=== PATIENT | male | born 1970 | race Caucasian/White ===

== ENCOUNTER 2024-09-03 14:12 | Emergency (ER) | payer MEDICAID, SELFPAY ==
[2024-09-03] VITALS (7 sets, daily range): BP systolic 116–169; BP diastolic 65–108; PULSE 63–102; RESP 14–30; TEMP 36.7–36.9; O2SAT 93–98; BMI 29.0
--- NOTE | 2024-09-03 14:19 | PC.NURSE ---
dr villalpando at bedside
--- NOTE | 2024-09-03 14:23 | XR_ITS ---
PROCEDURE INFORMATION: Exam: XR Chest Exam date and time: 09/03/2024 2:34 PM Age: 53 years old Clinical indication: Cough and shortness of breath; Additional info: Productive cough, malaise TECHNIQUE: Imaging protocol: Radiologic exam of the chest. Views: 1 view. COMPARISON: No relevant prior studies available. FINDINGS: Tubes, catheters and devices: None. Lungs: The lungs appear clear. Pleural spaces: No pleural effusion. No pneumothorax. Heart/Mediastinum: Mediastinum and taylor appear unremarkable. Bones/joints: Mild generalized bony degenerative changes. Bony structures appear otherwise unremarkable. IMPRESSION: No evidence for acute abnormality identified in the chest.
--- NOTE | 2024-09-03 14:25 | ECG_ITS ---
APPROVED REPORT Exam: Resting ECG HR:82 bpm ECG Measurements Heart Rate 82 AXES PA 143 P 68 QRSd 92 QRS 18 QT 337 T 43 QTc 376 Conclusion Sinus rhythm Electronically signed by : TENNILLE MUÑOZ, 09/04/2024 07:18:40
--- NOTE | 2024-09-03 14:30 | [facility].EDGENADL ---
Discharge Plan Disposition Patient Disposition: Home, Self-Care Condition: Good Referrals Follow up/Referrals: Provider,Len, [Primary Care Provider] - See instructions Activity Restrictions/Add. Instructions Additional Instructions/Restrictions: You were evaluated in the emergency department today. Please make sure you stay hydrated. Follow-up with a primary care provider over the next 3 days for reassessment of labs. Return to the emergency department for new or worsening symptoms. Clinical Impressions Clinical Impression: Dehydration, Anxiety, Hypercalcemia, Hyperkalemia, Hyponatremia, Upper respiratory infection, viral Stand Alone Forms Stand Alone Forms: Work/School Release Instructions Patient Instructions: DI for Dehydration -- Adult, DI for Hypercalcemia, DI for Hyperkalemia Print Language Print Language: Polish Discharge ED Provider: Feliberto Muller General Adult HPI <Feliberto Muller MD - Last Filed: 09/03/24 15:11> General Chief complaint: Upper Respiratory Infection Stated complaint: cough congestion poss. anxiety w/sweating Time Seen by Provider: 09/03/24 14:17 Mode of Arrival: Ambulatory Source of Information: Patient Limitations: No Limitations Description of Symptoms (Recalled from ER Triage Doc. by RN): pt c/o cough x3days and anxiety History of Present Illness HPI narrative: Please note that above description of symptoms, in this electronic medical record under categorization of recalled from ER triage doctor by RN are reflective of an initial nursing assessment, however, is not reflective of my full history and physical exam that was personally taken and clarified. Consequentially, this preceding description of symptoms, which may include the patient's categorized chief complaint in the EMR, do not reflect my personal clinical impression, and the ultimate description of history of present illness and patient stated complaints should be deferred to this section of the note. Unless stated otherwise or congruent with this section of the note, additional signs, symptoms, or incongruence should be interpreted as inaccurate with my clinical impression. Related Data Allergies Allergy/AdvReac Type Severity Reaction Status Date / Time No Known Allergies Allergy Verified 09/03/24 14:31 PFSH <Feliberto Muller MD - Last Filed: 09/03/24 15:11> PFS Disclaimer: The information contained in this section may have been updated after the patient was seen, as this information can be updated by other users. Social History (Updated 09/03/24 @ 15:11 by Feliberto Muller MD) Smoking Status: Never smoker alcohol intake: never current occupational status: employed Travel in the last 8 weeks: None Have you lived/traveled outside [place] in past 30 days?: No Contact w/someone who lives/traveled outside [place] past 30 days?: No Exposure to someone with infectious disease in past 14 days?: No Do you have a fever (greater than 100.4 F or 38 C)?: No Have you tested positive for COVID-19: No Exposed to someone with COVID-19 in past 14 days?: No Do you have a sore throat?: No Do you have a cough?: Yes Do you have any weakness?: No Do you have any diarrhea?: No Are you experiencing any unusual bleeding?: No Do you have any muscle aches/pain?: No Do you have any abdominal pain?: No Are you experiencing loss of taste or smell?: No <Feliberto Muller MD - Last Filed: 09/03/24 15:11> ROS Obtained: Yes All systems reviewed & no additional complaints except as documented Physical Exam <Feliberto Muller MD - Last Filed: 09/03/24 15:11> General General appearance: alert and anxious Head Head exam: atraumatic and normocephalic Eye Eye exam: Present normal appearance, PERRL and EOMI Neck Neck exam: Present normal inspection, full ROM and trachea midline Respiratory Respiratory exam: Absent respiratory distress, wheezes, stridor, accessory muscle use or prolonged expiratory phase Cardiovascular Cardiovascular exam: Present regular rate, normal rhythm and other (Pulses equal symmetric in upper and lower extremities) Abdominal Exam Abdominal exam: Present soft; Absent distention, tenderness or pulsatile mass Extremities Exam Extremities exam: Absent edema Neurological Exam Neurological exam: Present alert, oriented X3 and CN II-XII intact; Absent motor sensory deficit Skin Skin exam: Present warm and dry; Absent diaphoresis or erythema Medical Decision Making <Feliberto Muller MD - Last Filed: 09/03/24 15:11> Medical Records Medical records reviewed: Yes I reviewed the patient's medical records. Screening: Per USPSTF and CDC recommendations, given the prevalence of disease in our region, it is our hospital?s policy to screen for HIV and viral Hepatitis for all patients aged 18 and over and those with ongoing risk factors. Lorenzo Inquiry Pt receiving controlled substance: No Lorenzo was queried for this patient: No Vital Signs: 09/03/24 14:25 09/03/24 14:40 09/03/24 15:00 Temperature 98.0 F Temperature Source Oral Pulse Rate 82 63 Pulse Rate [Right Radial] 102 H Respiratory Rate 22 14 19 Blood Pressure 123/72 117/73 Blood Pressure [Right Arm] 169/108 H Blood Pressure Mean [Right Arm] 128 Blood Pressure Source 02 Sat by Pulse Oximetry 98 96 93 L Oxygen Delivery Method Room Air Room Air Room Air 09/03/24 15:30 09/03/24 16:00 09/03/24 16:31 Temperature Temperature Source Pulse Rate 68 66 78 Pulse Rate [Right Radial] Respiratory Rate 14 30 H 21 Blood Pressure 117/66 120/76 118/65 Blood Pressure [Right Arm] Blood Pressure Mean [Right Arm] Blood Pressure Source 02 Sat by Pulse Oximetry 95 94 L 98 Oxygen Delivery Method Room Air Room Air Room Air 09/03/24 17:35 Temperature 98.5 F Temperature Source Oral Pulse Rate 81 Pulse Rate [Right Radial] Respiratory Rate 16 Blood Pressure 116/75 Blood Pressure [Right Arm] Blood Pressure Mean [Right Arm] Blood Pressure Source Automatic Cuff 02 Sat by Pulse Oximetry Oxygen Delivery Method Room Air Lab Data Lab Results 09/03/24 14:30: WBC 7.2, RBC 4.67, Hgb 14.1, Hct 41.2 L, MCV 88.2, MCH 30.2, MCHC 34.2, RDW 12.1, Plt Count 348, MPV 8.6, Neut % (Auto) 80.5 H, Lymph % (Auto) 12.2, [facility] % (Auto) 6.5, Eos % (Auto) 0.4, Baso % (Auto) 0.1, Neut # (Auto) 5.8, Lymph # (Auto) 0.9, [facility] # (Auto) 0.5, Eos # (Auto) 0.0, Baso # (Auto) 0.0, PT 10.5, INR 0.93, APTT 26.7, Sodium 133 L, Potassium 5.2 H, Chloride 97 L, Carbon Dioxide 29, Anion Gap 12.2, BUN 21 H, Creatinine 1.40 H, Estimated Creat Clear 73, Estimated GFR 53 L, Est GFR ( Amer) 64, Glucose 140 H, Calcium 10.9 H, Magnesium 2.0, Total Bilirubin 1.0, AST 41, ALT 31, Alkaline Phosphatase 98, Troponin I < 0.01, Total Protein 8.3 H, Albumin 5.1 H, Globulin 3.2, Albumin/Globulin Ratio 1.6, TSH 1.54, Thyroxine (T4) 9.6 09/03/24 17:00: Urine Opiates Screen Negative, Urine Methadone Screen Positive H, Ur Barbituates Screen Negative, Ur Phencyclidine Scrn Negative, Ur Amphetamines Screen Negative, U Benzodiazepines Scrn Negative, Urine Cocaine Screen Negative, U Marijuana (THC) Screen Positive H 09/03/24 14:30 09/03/24 14:30 Orders (Tests/Meds): ED MEDICATIONS Discontinued Medications Generic Name Dose Route Start Last Admin Trade Name Freq PRN Reason Stop Dose Admin Hydroxyzine Pamoate 50 mg 09/03/24 14:23 09/03/24 14:32 Hydroxyzine Pamoate 25mg Capsule PO 09/03/24 14:24 50 mg ONCE ONE Administration Sodium Chloride 1,000 mls @ 999 mls/hr 09/03/24 15:33 09/03/24 15:44 Sod Chlor 0.9% 1000ml Bag IV 09/03/24 16:33 999 mls/hr .Q1H1M ONE Administration ORDERS Category Date Time Status XR chest portable Stat Exams 09/03/24 14:23 Completed Complete Blood Count Auto Diff Stat Lab 09/03/24 14:30 Completed Comprehensive Metabolic Panel Stat Lab 09/03/24 14:30 Completed Drug Screen,Urine Stat Lab 09/03/24 17:00 Completed Magnesium Stat Lab 09/03/24 14:30 Completed PT INR [Prothrombin Time INR] Stat Lab 09/03/24 14:30 Completed PTT [Activated Partial Thrombo Time] Stat Lab 09/03/24 14:30 Completed T4 (Thyroxine) Stat Lab 09/03/24 14:30 Completed TSH [Thyroid Stimulating Hormone] Stat Lab 09/03/24 14:30 Completed Troponin I Q3H Lab 09/03/24 20:30 Ordered Troponin I Stat Lab 09/03/24 14:30 Completed Medical Decision Narrative: 53-year-old male presenting with multiple complaints. He states that he has had a productive cough for the last 2 days or so and has [place] States that it has helped moderately with the cough, however he is now having anxiety. States that he has been intermittently breaking into sweats and feeling incredibly anxious, no chest pain, shortness of breath, nausea, vomiting, neurologic deficits. Denies alcohol tobacco or drug use. States that he is currently on methadone and last dose was today he has not missed any doses. History obtained the patient and family. On arrival, patient hemodynamically stable, alert, oriented x4, appropriate, GCS 15, moving all extremities spontaneously, pupils equal and reactive to light. Full physical exam performed and significant for anxious appearing male. no acute distress. He is pacing around the room, eyes are wide open, answering questions with mildly pressured speech. Hypertensive and borderline tachycardic while walking around, heart rate slowed 80-90 when sitting down and taking deep breaths. Cardiopulmonary exam within normal limits. Differential includes anxiety, panic, metabolic abnormality, colonic abnormality, intoxication, withdrawal, among others. Patient placed on continuous cardiac monitoring and continuous pulse ox with initial blood pressure 169/100, heart rate 102, saturation 98% on room air. Independent interpretation of EKG shows sinus rhythm [address] or T wave changes concerning for acute ischemia. UT 143, QRS 92, QTc 376 with normal axis. Patient was given 50 mg hydroxyzine p.o. for symptomatic management and correction of underlying abnormalities. Pending at time of handoff to oncoming physician. Cell Feed Department Supervisor disclaimer Much of this encounter note is an electronic audiologist spoken language to printed text. Electronic audiologist of the spoken language may permit errors. Although I have reviewed the note, some errors may still exist. <Cintia Sherman, DO - Last Filed: 09/03/24 18:31> Vital Signs: 09/03/24 14:25 09/03/24 14:40 09/03/24 15:00 Temperature 98.0 F Temperature Source Oral Pulse Rate 82 63 Pulse Rate [Right Radial] 102 H Respiratory Rate 22 14 19 Blood Pressure 123/72 117/73 Blood Pressure [Right Arm] 169/108 H Blood Pressure Mean [Right Arm] 128 Blood Pressure Source 02 Sat by Pulse Oximetry 98 96 93 L Oxygen Delivery Method Room Air Room Air Room Air 09/03/24 15:30 09/03/24 16:00 09/03/24 16:31 Temperature Temperature Source Pulse Rate 68 66 78 Pulse Rate [Right Radial] Respiratory Rate 14 30 H 21 Blood Pressure 117/66 120/76 118/65 Blood Pressure [Right Arm] Blood Pressure Mean [Right Arm] Blood Pressure Source 02 Sat by Pulse Oximetry 95 94 L 98 Oxygen Delivery Method Room Air Room Air Room Air 09/03/24 17:35 Temperature 98.5 F Temperature Source Oral Pulse Rate 81 Pulse Rate [Right Radial] Respiratory Rate 16 Blood Pressure 116/75 Blood Pressure [Right Arm] Blood Pressure Mean [Right Arm] Blood Pressure Source Automatic Cuff 02 Sat by Pulse Oximetry Oxygen Delivery Method Room Air Lab Data Lab Results 09/03/24 14:30: WBC 7.2, RBC 4.67, Hgb 14.1, Hct 41.2 L, MCV 88.2, MCH 30.2, MCHC 34.2, RDW 12.1, Plt Count 348, MPV 8.6, Neut % (Auto) 80.5 H, Lymph % (Auto) 12.2, [facility] % (Auto) 6.5, Eos % (Auto) 0.4, Baso % (Auto) 0.1, Neut # (Auto) 5.8, Lymph # (Auto) 0.9, [facility] # (Auto) 0.5, Eos # (Auto) 0.0, Baso # (Auto) 0.0, PT 10.5, INR 0.93, APTT 26.7, Sodium 133 L, Potassium 5.2 H, Chloride 97 L, Carbon Dioxide 29, Anion Gap 12.2, BUN 21 H, Creatinine 1.40 H, Estimated Creat Clear 73, Estimated GFR 53 L, Est GFR ( Amer) 64, Glucose 140 H, Calcium 10.9 H, Magnesium 2.0, Total Bilirubin 1.0, AST 41, ALT 31, Alkaline Phosphatase 98, Troponin I < 0.01, Total Protein 8.3 H, Albumin 5.1 H, Globulin 3.2, Albumin/Globulin Ratio 1.6, TSH 1.54, Thyroxine (T4) 9.6 09/03/24 17:00: Urine Opiates Screen Negative, Urine Methadone Screen Positive H, Ur Barbituates Screen Negative, Ur Phencyclidine Scrn Negative, Ur Amphetamines Screen Negative, U Benzodiazepines Scrn Negative, Urine Cocaine Screen Negative, U Marijuana (THC) Screen Positive H Orders (Tests/Meds): ED MEDICATIONS Discontinued Medications Generic Name Dose Route Start Last Admin Trade Name Freq PRN Reason Stop Dose Admin Hydroxyzine Pamoate 50 mg 09/03/24 14:23 09/03/24 14:32 Hydroxyzine Pamoate 25mg Capsule PO 09/03/24 14:24 50 mg ONCE ONE Administration Sodium Chloride 1,000 mls @ 999 mls/hr 09/03/24 15:33 09/03/24 15:44 Sod Chlor 0.9% 1000ml Bag IV 09/03/24 16:33 999 mls/hr .Q1H1M ONE Administration ORDERS Category Date Time Status XR chest portable Stat Exams 09/03/24 14:23 Completed Complete Blood Count Auto Diff Stat Lab 09/03/24 14:30 Completed Comprehensive Metabolic Panel Stat Lab 09/03/24 14:30 Completed Drug Screen,Urine Stat Lab 09/03/24 17:00 Completed Magnesium Stat Lab 09/03/24 14:30 Completed PT INR [Prothrombin Time INR] Stat Lab 09/03/24 14:30 Completed PTT [Activated Partial Thrombo Time] Stat Lab 09/03/24 14:30 Completed T4 (Thyroxine) Stat Lab 09/03/24 14:30 Completed TSH [Thyroid Stimulating Hormone] Stat Lab 09/03/24 14:30 Completed Troponin I Q3H Lab 09/03/24 20:30 Ordered Troponin I Stat Lab 09/03/24 14:30 Completed Medical Decision Narrative: 53-year-old male presenting with multiple complaints. He states that he has had a productive cough for the last 2 days or so and has been taking [place]ox[place]. States that it has helped moderately with the cough, however he is now having anxiety. States that he has been intermittently breaking into sweats and feeling incredibly anxious, no chest pain, shortness of breath, nausea, vomiting, neurologic deficits. Denies alcohol tobacco or drug use. States that he is currently on methadone and last dose was today he has not missed any doses. History obtained the patient and family. On arrival, patient hemodynamically stable, alert, oriented x4, appropriate, GCS 15, moving all extremities spontaneously, pupils equal and reactive to light. Full physical exam performed and significant for anxious appearing male. no acute distress. He is pacing around the room, eyes are wide open, answering questions with mildly pressured speech. Hypertensive and borderline tachycardic while walking around, heart rate slowed 80-90 when sitting down and taking deep breaths. Cardiopulmonary exam within normal limits. Differential includes anxiety, panic, metabolic abnormality, colonic abnormality, intoxication, withdrawal, among others. Patient placed on continuous cardiac monitoring and continuous pulse ox with initial blood pressure 169/100, heart rate 102, saturation 98% on room air. Independent interpretation of EKG shows sinus rhythm [address] or T wave changes concerning for acute ischemia. UT 143, QRS 92, QTc 376 with normal axis. Patient was given 50 mg hydroxyzine p.o. for symptomatic management and correction of underlying abnormalities. Pending at time of handoff to oncoming physician. Cell Feed Department Supervisor disclaimer Much of this encounter note is an electronic audiologist spoken language to printed text. Electronic audiologist of the spoken language may permit errors. Although I have reviewed the note, some errors may still exist. DO Lane: I assumed care of the patient at 1500 at time of departure of the previous provider. On my assessment of the patient, vitals are normal on cardiac telemetry. He states that he is feeling much better after the hydroxyzine. Exam is very reassuring. Labs demonstrated reassuring CBC with no significant leukocytosis. Chemistry demonstrates mild hyponatremia, hyperkalemia, mildly elevated BUN and creatinine. Calcium is also mildly elevated at 10.9. I feel this likely represents hemoconcentration in the setting of this viral illness given the clinical picture and presentation. Patient was given a bolus of IV fluids with continued symptomatic improvement. Urinalysis was positive for methadone, which we know the patient is on, as well as THC. Overall, given significant improvement in symptoms, I had discussion with the patient regarding going home and following up closely with a primary care provider for monitoring of his electrolytes. He is agreeable with this. He was given strict return precautions and was discharged after all questions were answered. Critical Care <Feliberto Muller MD - Last Filed: 09/03/24 15:11> Critical Care Time Critical Care Time: No
[2024-09-03] MEDS: hydrOXYzine pamoate 25MG CAPSULE 50 MG PO (14:32)
[2024-09-03 14:41] LABS: Basophils % 0.1 % (0.1-2.0); Eosinophils % 0.4 % (0.1-12.0); Hematocrit 41.2 % (42.0-52.0); Hemoglobin 14.1 g/dL (14.1-18.0); Lymphocytes # 0.9 K/mm3 (0.7-4.5); Lymphocytes % 12.2 % (10-50); Mean Corpuscular HGB Conc 34.2 g/dL (31.8-35.4); Mean Corpuscular Hemoglobin 30.2 pg (27.0-31.2); Mean Corpuscular Volume 88.2 fl (80-94); Mean Platelet Volume 8.6 fl (7.4-10.4); Monocytes # 0.5 K/mm3 (0.1-1.0); Monocytes % 6.5 % (1.7-9.3); Neutrophils # 5.8 K/mm3 (1.8-7.8); Neutrophils % 80.5 % (37.0-80.0); Platelet Count 348 K/mm3 (142-424); Red Blood Count 4.67 M/mm3 (4.60-6.20); Red Cell Distribution Width 12.1 % (11.5-17.5); White Blood Count 7.2 K/mm3 (4.8-10.8)
[2024-09-03 14:46] LABS: Albumin Level 5.1 g/dl (3.5-5.0); Chloride 97 mmol/L (98-107)
[2024-09-03 14:47] LABS: Potassium 5.2 mmoL/L (3.5-5.1); Sodium 133 mmol/L (136-145)
[2024-09-03 14:49] LABS: Alanine Aminotransferase 31 U/L (12-78); Alkaline Phosphatase 98 U/L (38-126); Anion Gap 12.2 mEq/L (5-15); Aspartate Amino Transferase 41 U/L (17-59); Blood Urea Nitrogen 21 mg/dl (9-20); Carbon Dioxide 29 mmol/L (22.0-30.0); Creatinine Clearance Estimated 73 mL/min (50-200); Estimated Glomerular Filt Rate 53 ml/min (>60); GFR (African American) 64 ML/MIN (>60)
[2024-09-03 14:50] LABS: Albumin/Globulin Ratio 1.6 (1.1-1.8); Calcium 10.9 mg/dl (8.4-10.2); Globulin 3.2 g/dL (1.3-3.2); Glucose 140 mg/dl (74-100); Total Protein,Serum 8.3 g/dl (6.3-8.2)
[2024-09-03 14:52] LABS: Activated Partial Thrombo Time 26.7 seconds (22.8-30.6); INR 0.93 (0.9-1.1); Prothrombin Time 10.5 seconds (10.1-12.5)
[2024-09-03 15:02] LABS: Troponin I < 0.01 ng/ml (0.00-0.034)
[2024-09-03 15:07] LABS: T4 (Thyroxine) 9.6 ug/dl (5.53-11.0)
[2024-09-03 15:20] LABS: Thyroid Stimulating Hormone 1.54 uIU/mL (0.465-4.68)
[2024-09-03] MEDS: 0.9 % SODIUM CHLORIDE 1000ML 1,000 ML 999 ML IV (15:44)
--- NOTE | 2024-09-03 17:09 | PC.NURSE ---
ROUNDED ON PT, NO NEEDS AT THIS TIME. CALL LIGHT WITHIN REACH
[2024-09-03 17:26] LABS: Amphetamine/Metha Screen,Urine Negative ng/ml (<1000); Benzodiazepines Screen,Urine Negative ng/ml (<200)
[2024-09-03 17:27] LABS: Barbiturates Screen,Urine Negative ng/ml (<200)
[2024-09-03 17:28] LABS: Cannabinoid Screen,Urine Positive ng/ml (<50); Cocaine Screen,Urine Negative ng/ml (<300)
[2024-09-03 17:29] LABS: Methadone Screen,Urine Positive ng/ml (<300)
[2024-09-03 17:30] LABS: Opiate Screen,Urine Negative ng/ml (<300); Phencyclidine Screen,Urine Negative ng/ml (<25)
== END 2024-09-03 17:37 | disposition home or self-care (01) ==
PROVIDERS: Emergency Provider Emergency Medicine
DX: E86.0 Dehydration (principal); J06.9 Acute upper respiratory infection, unspecified; E87.1 Hypo-osmolality and hyponatremia; E87.5 Hyperkalemia; E83.52 Hypercalcemia; R05.9 Cough, unspecified; F41.9 Anxiety disorder, unspecified; R09.81 Nasal congestion; R06.02 Shortness of breath
CPT/HCPCS: 71045; 80053; 80307; 83735; 84436; 84443; 84484; 85025; 85610; 85730; 93005; 96360; 99284; J7030

== ENCOUNTER 2024-09-22 17:49 | Emergency (ER) | payer MEDICAID, SELFPAY ==
[2024-09-22 17:54] VITALS: BP 164/107; PULSE 94; RESP 20; TEMP 36.8; O2SAT 96; BMI 27.3
--- NOTE | 2024-09-22 18:05 | PC.NURSE ---
GLUCOSE 158
--- NOTE | 2024-09-22 18:19 | ECG_ITS ---
APPROVED REPORT Exam: Resting ECG HR:77 bpm ECG Measurements Heart Rate 77 AXES OR 151 P 70 QRSd 103 QRS 16 QT 363 T 35 QTc 395 Conclusion SINUS RHYTHM NORMAL ECG Electronically signed by : SHELLY MOYA, 09/23/2024 00:16:43
[2024-09-22 18:24] LABS: Basophils % 0.5 % (0.1-2.0); Eosinophils % 0.2 % (0.1-12.0); Hematocrit 40.3 % (42.0-52.0); Hemoglobin 13.8 g/dL (14.1-18.0); Lymphocytes # 0.9 K/mm3 (0.7-4.5); Lymphocytes % 13.6 % (10-50); Mean Corpuscular HGB Conc 34.2 g/dL (31.8-35.4); Mean Corpuscular Hemoglobin 30.2 pg (27.0-31.2); Mean Corpuscular Volume 88.2 fl (80-94); Mean Platelet Volume 8.5 fl (7.4-10.4); Monocytes # 0.5 K/mm3 (0.1-1.0); Monocytes % 7.6 % (1.7-9.3); Neutrophils # 4.9 K/mm3 (1.8-7.8); Neutrophils % 77.9 % (37.0-80.0); Platelet Count 267 K/mm3 (142-424); Red Blood Count 4.57 M/mm3 (4.60-6.20); White Blood Count 6.3 K/mm3 (4.8-10.8)
--- NOTE | 2024-09-22 18:27 | ED_ITS ---
Discharge Plan Disposition Patient Disposition: Home, Self-Care Condition: Good Prescriptions Prescriptions: New hydroxyzine HCl 25 mg tablet 25 mg PO Q8H PRN (Reason: itching) Qty: 20 0RF Referrals Follow up/Referrals: Provider,Referral, [Primary Care Provider] - See instructions Activity Restrictions/Add. Instructions Additional Instructions/Restrictions: You were evaluated in the emergency department today. Please follow-up very closely with the primary care provider as instructed, as they can help get to the onto the bottom of your issues and start you on a maintenance medication. 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 Avoid using any recreational drugs, as they can trigger anxiety. Make sure you drink plenty of fluids and stay hydrated. Return to the emergency department for new or worsening symptoms. Clinical Impressions Clinical Impression: Dehydration, Anxiety Instructions Patient Instructions: Anxiety Disorders Print Language Print Language: Gabonese Discharge ED Provider: Cintia Sherman General Adult HPI General Chief complaint: Anxiety Stated complaint: hot flashes, jitteriness poss. anxiety Time Seen by Provider: 09/22/24 18:05 Mode of Arrival: Ambulatory Source of Information: Patient Limitations: No Limitations Description of Symptoms (Recalled from ER Triage Doc. by RN): Patient presents with my insides feel like they're just shaking. Patient states he has been having episodes where he gets a hot flash up the back of his neck and head and then he starts shaking. Patient states he feels like his insides are also shaking. Patient states he was here a week ago and was given, something to help me calm down. Patient states it worked for two days. States he was given a list of primary care providers to follow up with but he lost this list. States he simply came to get a new list, but then his symptoms suddenly started, so he signed into the ED. Presents to triage with smooth steady gait. Speaking rapidly in triage. No visible tremoring noted. History of Present Illness HPI narrative: This patient is a 53-year-old male with a history of methadone dependence and THC use presenting to the emergency department for evaluation with concern for hot flashes. Patient states that he thinks it is anxiety. He states that he feels like his insides are shaking and gets away that comes over him that feels like jitteriness. He states that it goes up into his shoulders. He notes that he was prescribed something to calm him down and he did better for several days after evaluation here 09/03/2024, but when he ran out the symptoms recurred. He has not yet followed up with a primary care provider. No other concerns or complaints noted, such as chest pain, abdominal pain, or other issues. Related Data Previous Rx's ?Medication ?Instructions ?Recorded hydroxyzine HCl 25 mg tablet 25 mg PO Q8H PRN itching #20 tabs 09/22/24 Allergies Allergy/AdvReac Type Severity Reaction Status Date / Time No Known Allergies Allergy Verified 09/03/24 14:31 [facility] Disclaimer: The information contained in this section may have been updated after the patient was seen, as this information can be updated by other users. Social History Smoking Status: Former smoker alcohol intake: never current occupational status: employed Travel in the last 8 weeks: None Have you lived/traveled outside US in past 30 days?: No Contact w/someone who lives/traveled outside US past 30 days?: No Exposure to someone with infectious disease in past 14 days?: No Do you have a fever (greater than 100.4 F or 38 C)?: No Have you tested positive for COVID-19: No Exposed to someone with COVID-19 in past 14 days?: No Do you have a sore throat?: No Do you have a cough?: No Do you have any weakness?: No Do you have any diarrhea?: No Are you experiencing any unusual bleeding?: No Do you have any muscle aches/pain?: No Do you have any abdominal pain?: No Are you experiencing loss of taste or smell?: No ROS Obtained: Yes All systems reviewed & no additional complaints except as documented Physical Exam General General appearance: alert and in no apparent distress Head Head exam: atraumatic and normocephalic Eye Eye exam: Present normal appearance, PERRL and EOMI ENT ENT exam: Present normal exam, normal oropharynx, mucous membranes moist and normal external ear exam Neck Neck exam: Present normal inspection, full ROM and trachea midline; Absent tenderness Chest Chest inspection: Present normal inspection and symmetric chest wall rise; Absent tenderness Respiratory Respiratory exam: Present normal lung sounds bilaterally; Absent respiratory distress, wheezes, stridor or accessory muscle use Cardiovascular Cardiovascular exam: Present regular rate and normal rhythm Abdominal Exam Abdominal exam: Present soft; Absent distention, tenderness or guarding Extremities Exam Extremities exam: Present normal inspection, full ROM and normal capillary refill; Absent tenderness or edema Back Exam Back exam: Present normal inspection and full ROM; Absent tenderness Neurological Exam Neurological exam: Present alert, oriented X3, CN II-XII intact and normal gait; Absent motor sensory deficit Psychiatric Psychiatric exam: Present normal affect and normal mood Skin Skin exam: Present warm and dry Medical Decision Making Medical Records Medical records reviewed: Yes I reviewed the patient's medical records. Screening: Per USPSTF and CDC recommendations, given the prevalence of disease in our region, it is our hospital?s policy to screen for HIV and viral Hepatitis for all patients aged 18 and over and those with ongoing risk factors. Lorenzo Inquiry Pt receiving controlled substance: No Vital Signs: 09/22/24 17:54 09/22/24 18:30 09/22/24 19:00 Temperature 98.3 F Temperature Source Oral Pulse Rate 64 68 Pulse Rate [Radial] 94 H Respiratory Rate 20 Blood Pressure 129/79 131/85 Blood Pressure [Right Arm] 164/107 H Blood Pressure Mean 104 Blood Pressure Mean [Right Arm] 126 Blood Pressure Source Blood Pressure Source [Right Arm] Automatic Cuff Blood Pressure Position Blood Pressure Position [Right Arm] Sitting 02 Sat by Pulse Oximetry 96 95 93 L Oxygen Delivery Method Room Air Room Air Nasal Cannula Oxygen Flow Rate (LPM) 2 09/22/24 19:30 09/22/24 20:00 09/22/24 20:24 Temperature 97.8 F Temperature Source Oral Pulse Rate 83 64 67 Pulse Rate [Radial] Respiratory Rate 18 Blood Pressure 140/89 122/81 122/81 Blood Pressure [Right Arm] Blood Pressure Mean 106 94 Blood Pressure Mean [Right Arm] Blood Pressure Source Automatic Cuff Blood Pressure Source [Right Arm] Blood Pressure Position Supine Blood Pressure Position [Right Arm] 02 Sat by Pulse Oximetry 94 L 92 L Oxygen Delivery Method Room Air Oxygen Flow Rate (LPM) Lab Data Lab results reviewed: Yes I reviewed the patient's lab results. Lab Results 09/22/24 18:17: WBC 6.3, RBC 4.57 L, Hgb 13.8 L, Hct 40.3 L, MCV 88.2, MCH 30.2, MCHC 34.2, RDW 12.0, Plt Count 267, MPV 8.5, Neut % (Auto) 77.9, Lymph % (Auto) 13.6, [place] % (Auto) 7.6, Eos % (Auto) 0.2, Baso % (Auto) 0.5, Neut # (Auto) 4.9, Lymph # (Auto) 0.9, [place] # (Auto) 0.5, Eos # (Auto) 0.0, Baso # (Auto) 0.0, Sodium 136, Potassium 3.9, Chloride 103, Carbon Dioxide 21 L, Anion Gap 15.9 H, BUN 25 H, Creatinine 1.40 H, Estimated Creat Clear 69, Estimated GFR 53 L, Est GFR ( Amer) 64, Glucose 159 H, Calcium 9.3, Magnesium 1.9, Total Bilirubin 0.4, AST 53, ALT 28, Alkaline Phosphatase 100, Total Protein 7.2, Albumin 4.8, Globulin 2.4, Albumin/Globulin Ratio 2.0 H, TSH 1.51, Thyroxine (T4) 8.8, HCV Ab RAVEN w/Rflx PCR Qn Negative, HIV Ag/Ab Combo Qual Negative 09/22/24 18:17 09/22/24 18:17 Orders (Tests/Meds): ED MEDICATIONS Discontinued Medications Generic Name Dose Route Start Last Admin Trade Name Freq PRN Reason Stop Dose Admin Hydroxyzine Pamoate 25 mg 09/22/24 20:13 09/22/24 20:16 Hydroxyzine Pamoate 25mg Capsule PO 09/22/24 20:14 25 mg ONCE ONE Administration ORDERS Category Date Time Status CBC w/Auto Diff [Complete Blood Count Auto Diff] Stat Lab 09/22/24 18:17 Completed CMP [Comprehensive Metabolic Panel] Stat Lab 09/22/24 18:17 Completed HIV Combo Stat Lab 09/22/24 18:17 Completed Hepatitis C Ab Qual. W/ RFX Stat Lab 09/22/24 18:17 Completed MAG [Magnesium] Stat Lab 09/22/24 18:17 Completed T4 (Thyroxine) Stat Lab 09/22/24 18:17 Completed TSH [Thyroid Stimulating Hormone] Stat Lab 09/22/24 18:17 Completed ECG Data Tracing #1: I reviewed this ECG and interpreted as documented below: Normal sinus rhythm with a ventricular rate of [address] changes concerning for ischemia. Normal intervals ECG initial impression date: 09/22/24 ECG initial impression time: 18:21 Medical Decision Narrative: In summary, this patient is a 53-year-old male presenting to the Emergency Department for evaluation of episodes of jitteriness, hot flashes, probable anxiety. Differential diagnoses considered include but are not limited to electrolyte derangements, anxiety, symptomatic hypertension. Ruling out the most morbid conditions drove assessment. It should be noted patient's history includes methadone dependence which is not at goal therapy. This complicates all aspects of care by increasing patient's risk for morbidity. I reviewed patient's past medical records and noted evaluation here 09/03/2024 with mild hyperkalemia, mild hypercalcemia, mildly elevated creatinine. Patient had improvement after IV fluids and was deemed to be appropriate for discharge home with close PCP follow-up, but he did not follow-up. On exam, the patient is sitting upright in no acute distress with no acute complaints noted at this time. He is mildly hypertensive but otherwise vitals are reassuring on cardiac telemetry. EKG was obtained and is reassuring. Workup included CBC, CMP, TSH, T4, magnesium, EKG. On multiple subsequent reassessments, the patient is resting comfortably with reassuring vital signs and cardiac telemetry. He is requesting hydroxyzine, as he states that significantly helps him. I gave him this. His labs are actually improved from prior with improved hyperkalemia, improved hypercalcemia. Kidney function stable. He looks a little bit dry so I gave him instructions for hydration and I did refill his hydroxyzine. I stressed to him the importance of close outpatient follow-up with primary care for further evaluation and management, as hydroxyzine is not a long-term maintenance medication in ED does not replace primary care. Strict return precautions were given Critical Care Critical Care Time Critical Care Time: No
[2024-09-22 18:30] VITALS: BP 129/79; PULSE 64; O2SAT 95
[2024-09-22 19:00] VITALS: BP 131/85; PULSE 68; O2SAT 93
[2024-09-22 19:30] VITALS: BP 140/89; PULSE 83; O2SAT 94
[2024-09-22 19:49] LABS: HIV Combo NEGATIVE (Negative)
[2024-09-22 19:50] LABS: Alanine Aminotransferase 28 U/L (12-78); Albumin Level 4.8 g/dl (3.5-5.0); Alkaline Phosphatase 100 U/L (38-126); Anion Gap 15.9 mEq/L (5-15); Aspartate Amino Transferase 53 U/L (17-59); Bilirubin,Total 0.4 mg/dl (0.2-1.3); Blood Urea Nitrogen 25 mg/dl (9-20); Calcium 9.3 mg/dl (8.4-10.2); Carbon Dioxide 21 mmol/L (22.0-30.0); Chloride 103 mmol/L (98-107); Creatinine Clearance Estimated 69 mL/min (50-200); Estimated Glomerular Filt Rate 53 ml/min (>60); GFR (African American) 64 ML/MIN (>60); Globulin 2.4 g/dL (1.3-3.2); Glucose 159 mg/dl (74-100); Magnesium 1.9 mg/dl (1.6-2.3); Potassium 3.9 mmoL/L (3.5-5.1); Sodium 136 mmol/L (136-145); Total Protein,Serum 7.2 g/dl (6.3-8.2)
[2024-09-22 20:00] VITALS: BP 122/81; PULSE 64; O2SAT 92
[2024-09-22 20:02] LABS: Hepatitis C Ab Qual. W/ RFX NEGATIVE (Negative)
[2024-09-22 20:07] LABS: T4 (Thyroxine) 8.8 ug/dl (5.53-11.0)
[2024-09-22] MEDS: hydrOXYzine pamoate 25MG CAPSULE 25 MG PO (20:16)
[2024-09-22 20:21] LABS: Thyroid Stimulating Hormone 1.51 uIU/mL (0.465-4.68)
[2024-09-22 20:24] VITALS: BP 122/81; PULSE 67; RESP 18; TEMP 36.6; O2SAT 94
== END 2024-09-22 20:28 | disposition home or self-care (01) ==
PROVIDERS: Emergency Provider Emergency Medicine
DX: E86.0 Dehydration (principal); F41.9 Anxiety disorder, unspecified; R23.2 Flushing; Z87.891 Personal history of nicotine dependence
CPT/HCPCS: 80053; 83735; 84436; 84443; 85025; 86803; 87389; 93005; 99283

== ENCOUNTER 2025-04-24 07:37 | Emergency (ER) | payer SELFPAY ==
--- NOTE | 2025-04-24 07:39 | ECG_ITS ---
APPROVED REPORT Exam: Resting ECG HR:83 bpm ECG Measurements Heart Rate 83 AXES MN 139 P 69 QRSd 96 QRS 12 QT 345 T 48 QTc 385 Conclusion SINUS RHYTHM POSSIBLE LEFT ATRIAL ENLARGEMENT [-0.1mV P-WAVE IN V1/V2] SEPTAL MYOCARDIAL INFARCTION , PROBABLY OLD [40+ ms Q WAVE IN V1/V2] ABNORMAL ECG UNCONFIRMED REPORT Electronically signed by : Scooter Cleary, 04/26/2025 15:31:24
[2025-04-24 07:42] VITALS: BP 157/93; PULSE 95; RESP 18; TEMP 36.6; O2SAT 98; BMI 27.3
--- NOTE | 2025-04-24 07:50 | XR_ITS ---
FINAL REPORT CLINICAL HISTORY: chest pain COMPARISON: 09/03/2024 FINDINGS: The heart size is normal. The mediastinum is normal. There is no focal infiltrate or edema. There are no pleural effusions. There is no pneumothorax. There is no osseous abnormality. IMPRESSION: No acute cardiopulmonary process Reviewed, Interpreted and Dictated by Neeraj Lopez MD Transcribed by Kathia Hong Authenticated and [facility]
[2025-04-24 07:58] LABS: Hematocrit 45.3 % (42.0-52.0); Hemoglobin 15.1 g/dL (14.1-18.0); Immature Granulocytes % 0.3 %; Mean Corpuscular HGB Conc 33.3 g/dL (31.8-35.4); Mean Corpuscular Hemoglobin 28.1 pg (27.0-31.2); Mean Corpuscular Volume 84.4 fl (80-94); Nucleated Red Blood Cells % 0 %; Platelet Count 397 K/mm3 (142-424); Red Blood Count 5.37 M/mm3 (4.60-6.20); Red Cell Distribution Width-SD 42.7 fL; White Blood Count 6.9 K/mm3 (4.8-10.8)
--- NOTE | 2025-04-24 08:04 | ED_ITS ---
Discharge Plan Disposition Patient Disposition: Home, Self-Care Prescriptions Prescriptions: No Action hydroxyzine HCl 25 mg tablet 25 mg PO Q8H PRN (Reason: itching) Qty: 20 0RF Referrals Follow up/Referrals: Elbert Caba MD [Staff Physician, Cardiology] - See instructions Activity Restrictions/Add. Instructions Additional Instructions/Restrictions: No evidence of acute cardiopulmonary emergency today. Please follow-up with Dr. Caba at your earliest convenience and your primary care doctor to discuss your chronic anxiety. Clinical Impressions Clinical Impression: Atypical chest pain, Anxiety Print Language Print Language: Armenian Discharge ED Provider: Linda Cleary [facility] General Chief Complaint: Chest Pain Stated Complaint: CP Time Seen by Provider: 04/24/25 07:55 Mode of Arrival: Ambulatory Source of Information: Patient Description of Symptoms (Recalled from ER Triage Doc. by RN): patient states he has been having high blood pressure for 4-5 days with left chest pain developing this mornig at 7 that he says feels like heartburn, he reports he has not been able to sleep recenlty also reports intermittent bright red stool. he reprots he does take methadone. he is on some anxiety meds but appears very anxious during triage History of Present Illness HPI narrative: Patient is a 54-year-old male presenting today with chest discomfort. States this has been going on about 2 hours starting just prior to arrival today. Has been dealing with severe anxiety over the last year prescribed multiple medications for this he has been trying to stop taking medications as he states that his woman who is with him tells him he is taking too many medications. However when he tries to stop taking his medicines he gets very worried and anxious and has to tell himself to start breathing etc. No history of any heart attacks or coronary disease has never had a heart catheter or stress test in the past. No exertional symptoms dyspnea etc. Related Data Previous Rx's ?Medication ?Instructions ?Recorded hydroxyzine HCl 25 mg tablet 25 mg PO Q8H PRN itching #20 tabs 09/22/24 Allergies Allergy/AdvReac Type Severity Reaction Status Date / Time No Known Allergies Allergy Verified 09/03/24 14:31 [facility] Disclaimer: The information contained in this section may have been updated after the patient was seen, as this information can be updated by other users. Social History Smoking Status: Never smoker alcohol intake: never current occupational status: employed Travel in the last 8 weeks?: None Have you lived/traveled outside US in past 30 days?: No Contact w/someone who lives/traveled outside US past 30 days?: No Exposure to someone with infectious disease in past 14 days?: No Do you have a fever (greater than 100.4 F or 38 C)?: No Have you tested positive for COVID-19?: No Exposed to someone with COVID-19 in past 14 days?: No Do you have a sore throat?: No Do you have a cough?: No Do you have any weakness?: No Do you have any diarrhea?: No Are you experiencing any unusual bleeding?: No Do you have any muscle aches/pain?: No Do you have any abdominal pain?: No Are you experiencing loss of taste or smell?: No ROS Obtained: Yes All systems reviewed & no additional complaints except as documented Physical Exam General General appearance: anxious (Jittery) Respiratory Respiratory exam: Present normal lung sounds bilaterally and respiratory distress Cardiovascular Cardiovascular exam: Present regular rate and normal rhythm Neurological Exam Neurological exam: Present alert and oriented X3 HEART Score HEART Score HEART Score assessment performed?: Yes History (anamnesis): Slightly suspicious ECG: Normal Age: 45-65 years Risk factors: 1-2 risk factors Troponin: </= normal limit HEART Score: 2 Critical Care Critical Care Time Critical Care Time: No Medical Decision Making Lorenzo Inquiry Pt receiving controlled substance: No Vital Signs Vital Signs: 04/24/25 07:42 04/24/25 08:20 04/24/25 08:30 Temperature 97.9 F Temperature Source Oral Pulse Rate 69 63 Pulse Rate [Right Radial] 95 H Respiratory Rate 18 13 15 Blood Pressure 105/78 L 116/75 Blood Pressure [Left Arm] 157/93 H Blood Pressure Mean [Left Arm] 114 Blood Pressure Source [Left Arm] Automatic Cuff Blood Pressure Position [Left Arm] Supine 02 Sat by Pulse Oximetry 98 97 96 Oxygen Delivery Method Room Air 04/24/25 09:01 04/24/25 09:30 Temperature Temperature Source Pulse Rate 65 68 Pulse Rate [Right Radial] Respiratory Rate Blood Pressure 112/84 129/80 Blood Pressure [Left Arm] Blood Pressure Mean [Left Arm] Blood Pressure Source [Left Arm] Blood Pressure Position [Left Arm] 02 Sat by Pulse Oximetry 94 L 98 Oxygen Delivery Method Lab Data Lab results reviewed: Yes I reviewed the patient's lab results. Labs: Lab Results 04/24/25 07:42: WBC 6.9, RBC 5.37, Hgb 15.1, Hct 45.3, MCV 84.4, MCH 28.1, MCHC 33.3, RDW 13.8, Plt Count 397, MPV 8.3, Neut % (Auto) 65.6, Lymph % (Auto) 24.2, [place] % (Auto) 8.6, Eos % (Auto) 0.9, Baso % (Auto) 0.4, Neut # (Auto) 4.5, Lymph # (Auto) 1.7, [place] # (Auto) 0.6, Eos # (Auto) 0.1, Baso # (Auto) 0.0, D-Dimer 0.60 H, Sodium 135 L, Potassium 4.7, Chloride 95 L, Carbon Dioxide 31 H, Anion Gap 13.7, BUN 29 H, Creatinine 1.30 H, Estimated Creat Clear 74, Estimated GFR 58 L, Est GFR ( Amer) 70, Glucose 111 H, Calcium 9.7, Total Bilirubin 0.7, AST 37, ALT 24, Alkaline Phosphatase 96, Troponin I < 0.01, Total Protein 8.1, Albumin 4.7, Globulin 3.4 H, Albumin/Globulin Ratio 1.4 04/24/25 09:23: Urine Opiates Screen Negative, Urine Methadone Screen Positive H , Ur Barbituates Screen Negative, Ur Phencyclidine Scrn Negative, Ur Amphetamines Screen Negative, U Benzodiazepines Scrn Negative, Urine Cocaine Screen Negative, U Marijuana (THC) Screen Positive H 04/24/25 10:23: Troponin I < 0.01 04/24/25 07:42 04/24/25 07:42 Response Orders (Tests/Meds): ED MEDICATIONS Discontinued Medications Generic Name Dose Route Start Last Admin Trade Name Freq PRN Reason Stop Dose Admin Diazepam 2 mg 04/24/25 08:02 04/24/25 08:10 Diazepam 10mg/2ml Syringe IV 04/24/25 08:03 2 mg ONCE ONE Administration ORDERS Category Date Time Status XR chest portable Stat Exams 04/24/25 07:50 Completed Complete Blood Count Auto Diff Stat Lab 04/24/25 07:42 Completed Comprehensive Metabolic Panel Stat Lab 04/24/25 07:42 Completed D-Dimer Stat Lab 04/24/25 07:42 Completed Troponin I Q3H Lab 04/24/25 10:23 Completed Troponin I Q3H Lab 04/24/25 14:00 Ordered Troponin I Stat Lab 04/24/25 07:42 Completed UDS [Drug Screen,Urine] Stat Lab 04/24/25 09:23 Completed ECG Data Tracing #1: Attestation: I reviewed this ECG and interpreted as documented below: ECG Narrative: Ventricular rate of 83 normal sinus rhythm no acute ischemic changes noted normal axis no significant conduction abnormalities MDM Narrative Medical Decision Narrative: Nontoxic but very anxious appearing 54-year-old male presenting today with chest discomfort for the last 2 hours. Will require serial troponins to rule out acute coronary syndrome or any significant myocardial injury. EKG is nonischemic and not concerning. Will get a D-dimer given his age cannot use PERC criteria but will utilize years criteria to rule out any pulmonary embolism with a cutoff of 1.[address] PE. Patient is extremely anxious and jittery has a appearance of potential sympathomimetic toxidrome such as meth or cocaine we will obtain an UDS. However most likely his symptoms are secondary to severe anxiety. IV Valium has been ordered. Will reassess shortly. Chest x-ray performed I personally interpreted shows no acute cardiopulmonary emergency labs unremarkable including serial troponins D-dimer less than 1.0 utilizing years criteria no evidence or need for CT PE. Patient very much improved after Valium this is most likely secondary to anxiety as symptoms today. He has been vies follow-up with primary care doctor to discuss further need for chronic anxiety and sleep medications and also to follow-up with cardiology to have further evaluation of his heart patient understood and agreed to this and was discharged in stable condition.
[2025-04-24 08:05] LABS: Alanine Aminotransferase 24 U/L (12-78); Albumin Level 4.7 g/dl (3.5-5.0); Albumin/Globulin Ratio 1.4 (1.1-1.8); Alkaline Phosphatase 96 U/L (38-126); Anion Gap 13.7 mEq/L (5-15); Aspartate Amino Transferase 37 U/L (17-59); Bilirubin,Total 0.7 mg/dl (0.2-1.3); Blood Urea Nitrogen 29 mg/dl (9-20); Calcium 9.7 mg/dl (8.4-10.2); Carbon Dioxide 31 mmol/L (22.0-30.0); Chloride 95 mmol/L (98-107); Creatinine Clearance Estimated 74 mL/min (50-200); Creatinine,Serum 1.30 mg/dl (0.66-1.25); Estimated Glomerular Filt Rate 58 ml/min (>60); GFR (African American) 70 ML/MIN (>60); Globulin 3.4 g/dL (1.3-3.2); Glucose 111 mg/dl (74-100); Potassium 4.7 mmoL/L (3.5-5.1); Sodium 135 mmol/L (136-145); Total Protein,Serum 8.1 g/dl (6.3-8.2)
[2025-04-24] MEDS: diazePAM 10MG/2ML SYRINGE 2 MG IV (08:10)
[2025-04-24 08:20] VITALS: BP 105/78; PULSE 69; RESP 13; O2SAT 97
[2025-04-24 08:20] LABS: Troponin I < 0.01 ng/ml (0.00-0.034)
[2025-04-24 08:30] VITALS: BP 116/75; PULSE 63; RESP 15; O2SAT 96
[2025-04-24 08:43] LABS: D-Dimer 0.60 ug/mL (0.0-0.5)
[2025-04-24 09:01] VITALS: BP 112/84; PULSE 65; O2SAT 94
[2025-04-24 09:30] VITALS: BP 129/80; PULSE 68; O2SAT 98
[2025-04-24 09:45] LABS: Barbiturates Screen,Urine Negative ng/ml (<200)
[2025-04-24 09:46] LABS: Amphetamine/Metha Screen,Urine Negative ng/ml (<1000); Benzodiazepines Screen,Urine Negative ng/ml (<200)
[2025-04-24 09:47] LABS: Methadone Screen,Urine Positive ng/ml (<300)
[2025-04-24 09:49] LABS: Opiate Screen,Urine Negative ng/ml (<300); Phencyclidine Screen,Urine Negative ng/ml (<25)
[2025-04-24 10:54] LABS: Troponin I < 0.01 ng/ml (0.00-0.034)
[2025-04-24 11:33] VITALS: BP 145/88; PULSE 86; RESP 16; TEMP 36.6; O2SAT 99
== END 2025-04-24 11:33 | disposition home or self-care (01) ==
PROVIDERS: Emergency Provider Student in an Organized Health Care Education/Training Program; PCP Internal Medicine
DX: R07.89 Other chest pain (principal); F41.9 Anxiety disorder, unspecified; E87.1 Hypo-osmolality and hyponatremia
CPT/HCPCS: 71045; 80053; 80307; 84484; 85025; 85378; 93005; 96374; 99285; J3360